=== PATIENT | male | born 1990 | race Caucasian/White ===

== ENCOUNTER 2020-01-08 09:39 | Emergency (ER) | payer OTHER, SELFPAY ==
[2020-01-08 09:41] VITALS: BP 125/71; PULSE 81; RESP 16; TEMP 36.4; O2SAT 100; BMI 26.6
--- NOTE | 2020-01-08 10:20 | ED.VIS.GEN ---
History of Present Illness Chief Complaint: Allergic Reaction Informant: Patient Narrative: 29-year-old male with history of allergic reaction similar to this previously. He states that he gets a rash every year out his extremities. He states he usually goes to his primary doctor but could not get in today. He denies any new soaps, dyes, detergents, linens etc. He states he has not been exposed to any poison [place] or [place] that he knows of. He describes his rash is pruritic in nature. Is not painful. Prior similar symptoms: Yes Past Medical History - Allergies and Home Meds Allergies/Adverse Reactions: Allergies prednisone Adverse Reaction (Verified 01/08/20 10:33) PT UNSURE OF REACTION Primary Care Physician: Ronaldo Vega DO [Primary Care Provider] - Prior records reviewed: Yes Past Medical History: - - Denies significant medical history Lives: Spouse/ Significant Other Smoking Status: Never smoker Alcohol: None Drugs: None Review of Systems General: Denies: Chills, Fever, Sweats Eyes: Denies: Visual changes - bilaterally, Diplopia ENT: Denies: Rhinorrhea, Sore throat Cardiovascular: Denies: Chest pain, Palpitations Respiratory: Denies: Dyspnea, Cough, Dyspnea on exertion Gastrointestinal: Denies: Abdominal pain, Nausea, Vomiting, Diarrhea, Melena, Hematochezia Musculoskeletal: Denies: Back pain, Extremity Pain Skin: Reports: Rash. Denies: Abscess, Wounds Neurological: Denies: Headache, Weakness, Numbness Allergy: Denies: Swelling of the mouth, Swelling of the tongue Physical Exam Vital Signs/Narrative: Vital Signs Temp Pulse Resp BP Pulse Ox 01/08/20 09:41 97.6 F L 81 16 125/71 H 100 Inital Vital Signs reviewed: Yes General: Well nourished, Well developed Head: Normocephalic, Atraumatic Eyes: Perrl, EOMI ENT: Moist mucous membranes, No rhinorrhea Cardiovascular: Regular rate, Regular rhythm Respiratory: No distress, CTA bilaterally Skin: Rash - Pruritic rash noted to the bilateral hands and distal forearms. No vesicles. No drainage. No abscess or cellulitis. Neurological: Alert, Oriented x3 Psychological: Normal affect, Normal Mood Diagnostic/Tx/Re-eval - Medical Decision Making Patient was seen and evaluated on arrival for pruritic rash. He states he gets it every year and does not know why. He is unsure what is regular doctor usually gives him. I recommended prednisone and he stated that this makes him turn red. I offered this with Benadryl and he was amenable. I will put him on a prednisone taper for home. He is given return precautions. Patient stable for discharge. Impression: 1. Dermatitis ED Disposition - Plan for ED Patient: Disposition: Home or Assisted Living Instructions: ED General Allergic Reactions Prescriptions: DiphenhydrAMINE [Benadryl] 25 mg PO TID PRN PRN #30 cap PRN Reason: Itching Transmission Status: Received by [facility] DiphenhydrAMINE [Benadryl] 25 mg PO TID PRN PRN #30 cap PRN Reason: Itching [id number] Famotidine [Pepcid] 20 mg PO DAILY #30 tab Transmission Status: Received by [facility] Famotidine [Pepcid] 20 mg PO DAILY #30 tab Transmission [id number] Prednisone 10 mg PO UD #33 tab Transmission Status: Received by [facility] Prednisone 10 mg PO UD #33 tab Transmission Status: Received by [id number] Referrals: Ronaldo Vega DO [Primary Care Provider] -
[2020-01-08] MEDS: Famotidine 20 MG Tablet PO (10:42)
[2020-01-08] MEDS: DiphenhydrAMINE 25 MG Capsule PO (10:42)
[2020-01-08] MEDS: predniSONE 20 MG Tablet 60 MG PO (10:43)
== END 2020-01-08 10:49 | disposition home or self-care (01) ==
LOC: ED 10:35
PROVIDERS: Emergency Provider Student in an Organized Health Care Education/Training Program; PCP Family Medicine
DX: L30.9 Dermatitis, unspecified (principal)
CPT/HCPCS: 99283

== ENCOUNTER 2021-05-10 18:48 | Emergency (ER) | payer OTHER, SELFPAY ==
[2021-05-10 18:50] VITALS: BP 115/68; PULSE 92; RESP 20; TEMP 39; O2SAT 94; BMI 26.5
[2021-05-10 19:25] VITALS: BP 129/74; PULSE 90; RESP 19; O2SAT 94
--- NOTE | 2021-05-10 19:38 | CT_ITS ---
STUDY: CT SOFT TISSUE NECK WITH CONTRAST REASON FOR EXAM: Male, 31 years old. sore throat, difficulty swallowing RADIATION DOSAGE (If Supplied By Facility): CTDIvol = ( 20.11 ) mGy, DLP = ( 504.37 ) mGycm TECHNIQUE: The patient was scanned in a multi-detector CT scanner. High resolution transaxial imaging was performed following intravenous administration of IV 100mL Isovue-300. Sagittal and coronal images were reconstructed. Individualized dose optimization techniques were used for this CT. COMPARISON: None. FINDINGS: Normal bilateral parotid glands. Normal bilateral dust collector attendant spaces. Normal bilateral parapharyngeal spaces. Normal bilateral carotid spaces. Normal bilateral sublingual and submandibular glands and spaces. Mild adenoidal prominence in the posterior nasopharynx. Normal retropharyngeal space. Normal perivertebral space. There are calcifications in the bilateral faucial tonsils with right tonsillar enlargement and a mild heterogeneity. The visualized tongue, tongue base and oropharynx are normal. The visualized cervical lymph nodes (levels I-) are within normal size limits, and maintain normal morphology. There is no demonstrated solid or cystic mass lesion. There is no abnormal contrast enhancement. Normal epiglottis, bilateral vallecula and hypopharynx. The pre-epiglottic and paraglottic adipose spaces are normal. Normal visualized bilateral piriform sinuses, aryepiglottic folds, vocal cords, and arytenoid-cricoid articulations. Normal subglottic trachea. Normal bilateral lobes of the thyroid gland. Normal visualized pulmonary apices. Normal visualized paranasal sinuses. Normal visualized cervical spine. CT/Soft Tissue Neck WITH Contrast IMPRESSION: Mild adenoidal prominence in the posterior nasopharynx. There are calcifications in the bilateral faucial tonsils with right tonsillar enlargement and a mild heterogeneity. Electronically Signed: Paul Mills DO at 23:17 EST Reading Location ID and State: [facility] / [place] Tel [phone], Service support ,
--- NOTE | 2021-05-10 19:40 | EX.ED.DYSGE1 ---
HPI <NAHUM PEREZ - Last Filed: 05/10/21 23:57> History of Present Illness Chief Complaint: Sore Throat Detail of Chief Complaint: He's had a sore throat and fever for a few days Informant: patient and spouse/S.O. Onset/Context/Timing Onset: Days (4) Context: Sudden Onset Timing: Continuous Current Severity: Severe Narrative Narrative: Patient presents secondary to painful swallowing, fever, and cough productive of green sputum. Per the , this all started on , three days ago. The patient is writing on a note pad to answer questions due to his painful throat. 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 Patient reports body aches, chills, decreased appetite. PFSH <NAHUM PEREZ - Last Filed: 05/10/21 23:57> PFSH Medical History no medical history no medical history Home Medications oseltamivir [Tamiflu] 75 mg PO BID 5 Days #10 cap 05/10/21 [Rx Last Taken Unknown] Allergy/AdvReac Type Severity Reaction Status Date / Time prednisone AdvReac PT UNSURE Verified 05/10/21 18:48 OF REACTION Surgical History no surgical history no surgical history Social History Smoking Status: Never smoker ROS <NAHUM PEREZ - Last Filed: 05/10/21 23:57> ROS ED Constitutional Constitutional ED: Reports chills and fever(s) Eyes Eyes: Denies change in vision ENT ENT ED: Reports as per HPI and sore throat; Denies ear pain Cardiovascular Cardiovascular: Denies chest pain Respiratory/Chest Respiratory/Chest: Reports as per HPI and cough Gastrointestinal Gastrointestinal: Denies abdominal pain or nausea Musculoskeletal Musculoskeletal: Reports myalgias Integumentary Denies rash Neurologic Neurologic: Reports headache(s) Psychiatric Psychiatric: Denies anxiety or depression Endocrine Endocrinology: Denies polydipsia or polyuria EXAM <NAHUM PEREZ - Last Filed: 05/10/21 23:57> Physical Exam Const Vital Signs: 05/10/21 18:50 05/10/21 19:25 05/10/21 20:50 Temperature 102.2 F H 99.7 F H Temperature Source Oral Oral Pulse Rate 92 90 78 Respiratory Rate 20 H 19 H 15 Blood Pressure 115/68 129/74 H 116/73 Blood Pressure Mean 83 92 87 Pulse Ox 94 94 95 Oxygen Delivery Method Room Air Room Air Room Air 05/10/21 21:31 05/10/21 23:36 05/11/21 00:14 Temperature Temperature Source Pulse Rate 73 66 77 Respiratory Rate 15 15 15 Blood Pressure 115/61 119/79 126/84 H Blood Pressure Mean 79 92 Pulse Ox 93 95 95 Oxygen Delivery Method Room Air Room Air Positive well nourished and well developed General Appearance ED: well developed HEENT Reports head/scalp atraumatic, TM's clear, moist mucous membranes and moist oral mucous membranes HEENT Narrative: Posterior pharynx erythemic. No exudates. Tympanic Membrane ED: Yes TM's clear Throat: uvula midline, tonsils abnormal right (Right tonsil more swollen than left. ) and hoarseness Eyes PERRL and EOMs intact bilaterally Neck supple General: tenderness Chest Wall inspection of chest normal and palpation of chest normal Resp normal respiratory effort Resp Narrative: While in room with patient, patient has tight, persistent cough with thick green sputum produced. Auscultation: wheezes expiratory wheezes and inspiratory wheezes Cardio regular rate and regular rhythm GI normal to inspection, nondistended, normoactive bowel sounds Extremity normal to inspection General Extremety ED: Negative for edema General Extremity: Negative for edema Neuro oriented x3 Sensorium / Orientation: alert Psych mental status grossly normal Skin no rashes or lesions noted <Dr. Yamila Gonzales MD - Last Filed: 05/11/21 00:25> Physical Exam Const Vital Signs: 05/10/21 18:50 05/10/21 19:25 05/10/21 20:50 Temperature 102.2 F H 99.7 F H Temperature Source Oral Oral Pulse Rate 92 90 78 Respiratory Rate 20 H 19 H 15 Blood Pressure 115/68 129/74 H 116/73 Blood Pressure Mean 83 92 87 Pulse Ox 94 94 95 Oxygen Delivery Method Room Air Room Air Room Air 05/10/21 21:31 05/10/21 23:36 05/11/21 00:14 Temperature Temperature Source Pulse Rate 73 66 77 Respiratory Rate 15 15 15 Blood Pressure 115/61 119/79 126/84 H Blood Pressure Mean 79 92 Pulse Ox 93 95 95 Oxygen Delivery Method Room Air Room Air MDM <NAHUM PEREZ - Last Filed: 05/10/21 23:57> MDM MDM Narrative Medical decision making narrative: Patient given one liter of NS by EMS. Patient order Tylenol for fever. Denies need for other analgesic. CBC, BMP, flu, strep, COVID swabs ordered. Chest xray and soft tissue neck CT with IV contrast ordered. Lab Data Labs: Laboratory Results - last 24 hr 05/10/21 05/10/21 19:55 19:55 WBC 8.1 RBC 4.60 Hgb 14.2 Hct 40.9 MCV 88.9 MCH 30.9 MCHC 34.7 RDW Std Deviation 39.1 RDW Coeff of Giul[place] 11.9 Plt Count 174 MPV 10.0 Immature Gran % (Auto) 0.200 Neut % (Auto) 75.5 H Lymph % (Auto) 10.3 L [place] % (Auto) 13.2 H Eos % (Auto) 0.6 Baso % (Auto) 0.2 Absolute Neuts (auto) 6.1 Absolute Lymphs (auto) 0.84 Nucleated RBC % 0 Differential Comment SCANNED Sodium 137 Potassium 3.5 Chloride 106 Carbon Dioxide 25.0 Anion Gap 6 BUN 10 Creatinine 1.01 Estim Creat Clear Calc 111.43 Est GFR (MDRD) Af Amer 112 Est GFR (MDRD) Non-Af 93 BUN/Creatinine Ratio 9.9 L Glucose 106 Calcium 8.5 Radiography Diagnostic Testing: Clinical Impression(s) from Imaging Studies Soft Tissue Neck CT 05/10/21 19:38 IMPRESSION: Mild adenoidal prominence in the posterior nasopharynx. There are calcifications in the bilateral faucial tonsils with right tonsillar enlargement and a mild heterogeneity. Electronically Signed: Paul Mills DO at 23:17 EST , Chest X-Ray 05/10/21 20:26 IMPRESSION: Normal x-ray examination of the chest. Electronically Signed: Paul Mills DO at 23:09 EST , <Dr. Yamila Gonzales MD - Last Filed: 05/11/21 00:25> [facility] Lab Data Labs: Laboratory Results - last 24 hr 05/10/21 05/10/21 19:55 19:55 WBC 8.1 RBC 4.60 Hgb 14.2 Hct 40.9 MCV 88.9 MCH 30.9 MCHC 34.7 RDW Std Deviation 39.1 RDW Coeff of [place] 11.9 Plt Count 174 MPV 10.0 Immature Gran % (Auto) 0.200 Neut % (Auto) 75.5 H Lymph % (Auto) 10.3 L [place] % (Auto) 13.2 H Eos % (Auto) 0.6 Baso % (Auto) 0.2 Absolute Neuts (auto) 6.1 Absolute Lymphs (auto) 0.84 Nucleated RBC % 0 Differential Comment SCANNED Sodium 137 Potassium 3.5 Chloride 106 Carbon Dioxide 25.0 Anion Gap 6 BUN 10 Creatinine 1.01 Estim Creat Clear Calc 111.43 Est GFR (MDRD) Af Amer 112 Est GFR (MDRD) Non-Af 93 BUN/Creatinine Ratio 9.9 L Glucose 106 Calcium 8.5 Radiography Diagnostic Testing: Clinical Impression(s) from Imaging Studies Soft Tissue Neck CT 05/10/21 19:38 IMPRESSION: Mild adenoidal prominence in the posterior nasopharynx. There are calcifications in the bilateral faucial tonsils with right tonsillar enlargement and a mild heterogeneity. Electronically Signed: Paul Mills DO at 23:17 EST , Chest X-Ray 05/10/21 20:26 IMPRESSION: Normal x-ray examination of the chest. 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 Chart and documentation reviewed and endorsed. Patient presents with 4 days of sore throat and fever. He has had cough with green sputum production. He does have pain with swallowing but is tolerating secretions and drinking fluids. He has more difficulty with trying to eat solids. Patient lying in bed no acute distress. He is ill-appearing but not toxic. Head neck examination reveals TMs to be clear bilaterally. Posterior pharynx examination reveals bilateral tonsillar enlargement. He is tolerating secretions well. Heart is regular rate and rhythm. Lung sounds are clear. Abdomen is soft and nontender. Patient was given Tylenol for fever. He declined anything further for pain. Covid, strep, and influenza swabs sent. Lab work obtained along with chest x-ray and CT of the neck. Lab work unremarkable. Chest x-ray per my interpretation shows no focal infiltrate. CT of the neck shows prominence of the adenoid and tonsils but no abscess noted. Covid and strep test are negative. Influenza test is positive for flu A. Test results discussed with patient and at bedside. They would like to try Tamiflu. He was also given Chloraseptic spray to help with throat pain. Supportive care discussed and return instructions provided. Discharge Plan Triage Chief Complaint: Sore Throat ED Provider: Yamila Gonzales Dx/Rx/DC Orders Clinical Impression: Influenza A, Viral syndrome Instructions: ED Influenza (Adult), ED Pharyngitis, Viral, ED Viral Syndrome (Adult) Prescriptions: New oseltamivir [Tamiflu] 75 mg capsule 75 mg PO BID 5 Days Qty: 10 RF: 0 Primary Care Provider: Ronaldo Vega Referrals: Ronaldo Vega DO [Primary Care Provider] - 1 Week Disposition Disposition: Home, Self Care
[2021-05-10] MEDS: Acetaminophen 500 MG Tablet 1000 MG PO (19:58)
[2021-05-10] MEDS: 0.9% Normal Saline 1,000 ML 150 ML IV (20:00)
[2021-05-10 20:23] LABS: Absolute Lymphocyte Count 0.84 X10^3/uL (0.83-4.51); Absolute Neutrophil Count 6.1 X10^3/uL (2.0-7.7); Basophil# 0.02 X10^3/uL; Basophil% 0.2 % (0-1); Eosinophil# 0.05 X10^3/uL; Eosinophils% 0.6 % (0-5); Hematocrit 40.9 % (40-54); Hemoglobin 14.2 g/dL (13.0-16.5); Lymphocyte # 0.84 X10^3/ul (0.83-4.51); Lymphocyte % 10.3 % (19-41); Mean Corp Hgb Conc 34.7 g/dL (32-36); Mean Corpuscular Hgb 30.9 pg (27.0-32.0); Mean Corpuscular Volume 88.9 fL (80-94); Monocyte# 1.07 X10^3/uL; Monocyte% 13.2 % (0-10); NRBC Flagged by Analyzer 0 % (0-5); Neutrophil # 6.12 X10^3/uL (2.7-7.7); Neutrophil % 75.5 % (47-70); POSITIVE COUNT YES; Platelet Count 174 K/mm3 (150-450); RBC Distribution Width CV 11.9 % (11.6-14.6); RBC Distribution Width SD 39.1 fl (35.1-43.9); White Blood Count 8.1 K/mm3 (4.4-11.0)
--- NOTE | 2021-05-10 20:26 | RAD_ITS ---
STUDY: X-RAY CHEST REASON FOR EXAM: Male, 31 years old. Productive cough TECHNIQUE: Frontal and lateral views COMPARISON: 11/05/2012 FINDINGS: The lungs are clear and expanded. There is no demonstrated pleural abnormality. Normal size heart. Normal mediastinum and marlo. Normal visualized pulmonary arteries. Normal visualized aortic arch and descending thoracic aorta. Normal visualized thoracic spine. Normal visualized ribs, clavicles, and shoulders. There is no demonstrated abnormality of the visualized soft tissue structures of the upper abdomen. RAD/Chest PA and Lateral IMPRESSION: Normal x-ray examination of the chest. Electronically Signed: Paul Mills DO at 23:09 EST Reading Location ID and State: [facility] / [place] Tel [phone], Service support ,
[2021-05-10 20:36] LABS: Anion Gap 6 (5-15); BUN 10 mg/dL (7-18); BUN/Creat Ratio 9.9 RATIO (10-20); Calcium,Total 8.5 mg/dL (8.5-10.1); Chloride 106 mmol/L (98-107); Creatinine, Serum 1.01 mg/dL (0.70-1.30); EST Glomerular Filtration Rate 93 mL/min (>60); Est Glom Filt Rate - Afr Amer 112 mL/min (>60); Estimated Creatinine Clearance 111.43 ml/min; Glucose 106 mg/dL (74-106); Potassium 3.5 mmol/L (3.5-5.1); Sodium Level 137 mmol/L (136-145)
[2021-05-10 20:37] LABS: Differential Indicated SCAN CRITERIA MET
[2021-05-10 20:38] LABS: Differential Comment SCANNED
[2021-05-10 20:50] VITALS: BP 116/73; PULSE 78; RESP 15; TEMP 37.6; O2SAT 95
[2021-05-10 21:31] VITALS: BP 115/61; PULSE 73; RESP 15; O2SAT 93
[2021-05-10] MEDS: Phenol/Sodium Phenolate 180ML 3 SPRAY MUCOUS MEM (22:52)
[2021-05-10 23:36] VITALS: BP 119/79; PULSE 66; RESP 15; O2SAT 95
[2021-05-11] MEDS: Oseltamivir Phosphate 75 MG Capsule PO (00:11)
[2021-05-11 00:14] VITALS: BP 126/84; PULSE 77; RESP 15; O2SAT 95
== END 2021-05-11 00:42 | disposition home or self-care (01) ==
PROVIDERS: Emergency Provider Emergency Medicine; PCP Family Medicine; Visit Provider Emergency Medicine
DX: J10.1 Influenza due to other identified influenza virus with other respiratory manifestations (principal); B34.9 Viral infection, unspecified
CPT/HCPCS: 70491; 71046; 80048; 85025; 87426; 87804; 87880; 99284; Q9967